=== PATIENT | female | born 1965 | race Caucasian/White ===

== ENCOUNTER 2017-02-05 04:59 | Emergency (ER) | payer OTHER ==
[~2017-02-05] VITALS: Ht 162.6 cm; Wt 104.5 kg
[~2017-02-05 04:59] MED LIST: ADVAIR 250-501 EACH IH; AMBIEN10 MG PO; ASPIR 8181 M1 PO; AZITHROMYCIN250 MG PO; BACLOFEN10 MG PO; BACTRIM,SEPT1 TABLET PO; CEFTIN500 MG PO; COLACE100 MG PO; Claritin,Alavart PO; DAILY VITE1 EAC1 PO; DESYREL100 MG PO; DILAUDID2 MG PO; DILAUDID4 MG PO; Habitrol,Nicoderm CQ TD; IMITREX25 MG PO; IMITREX6 MG/0.51 PO; IMITREX6 MG/0.51 SC; KLONOPIN1 M2 PO; LEVAQUIN750 MG PO; LEXAPRO10 MG PO; LYRICA100 MG PO; LYRICA200 MG PO; MS CONTIN,ORAMO60 MG; MS CONTIN60 MG PO; MS Contin,Oramorph S PO; NEURONTIN300 MG PO; NEURONTIN600 MG PO; NORVIR100 M1 PO; Norvir PO; OMEPRAZOLE20 M3 PO; OPANA ER15 MG PO; OPANA ER40 MG PO; OXYCODONE HCL20 M1 PO; OXYCONTIN30 MG PO; OXYMORPHONE HCL30 MG PO; OxyCODONE PO; PERCOCET 10-321 EACH PO; PERCOCET 5/31 TABLET PO; PREDNISONE20 MG PO; PREDNISONE5 MG PO; PREMARIN0.3 MG PO; PREMARIN0.625 MG PO; PROAIR HFA8.5 GM IH; PROMETHAZINE HC25 M1 PO; PULMICORT FLE180 MCG IH; Phenergan PO; RAYATAZ PO; REYATAZ150 MG PO; REYATAZ300 MG PO; ROXICODONE30 MG PO; Robitussin, Organidi PO; SPIRIVA1 INHALATI IH; SUSTIVA200 MG PO; TIZANIDINE HCL4 MG PO; TOPAMAX100 MG PO; TRUVADA1 TABLET PO; VICODIN 5-5001 EACH PO; ZANAFLEX4 M1 PO; ZITHROMAX250 MG PO; [UNRECOGNIZED DRUG - OTHER] PO; norvir PO
[2017-02-05 06:41] VITALS: BP 120/81
[2017-02-06] MEDS ORDERED: NORCO 5/3251 TABLET PO (06:20)
== END 2017-02-05 06:43 | disposition home or self-care (01) ==
LOC: EME 04:59
DX: M25.461 Effusion, right knee (principal); S80.01XA Contusion of right knee, initial encounter; Z21 Asymptomatic human immunodeficiency virus [HIV] infection status; W01.0XXA Fall on same level from slipping, tripping and stumbling without subsequent striking against object, initial encounter; Z88.6 Allergy status to analgesic agent; Z88.1 Allergy status to other antibiotic agents; Z88.2 Allergy status to sulfonamides; F17.200 Nicotine dependence, unspecified, uncomplicated; Z71.6 Tobacco abuse counseling
CPT/HCPCS: 73564; 99281; 99283; J2270

== ENCOUNTER 2017-02-06 05:43 | Emergency (ER) | payer OTHER ==
[~2017-02-06] VITALS: Ht 162.6 cm; Wt 107.7 kg
[2017-02-06] MEDS ORDERED: NORCO 5/3251 TABLET PO (06:20)
[2017-02-06 06:44] VITALS: BP 137/90
== END 2017-02-06 06:45 | disposition home or self-care (01) ==
LOC: EME 05:43
DX: M25.561 Pain in right knee (principal); M25.461 Effusion, right knee; G89.29 Other chronic pain; Z79.891 Long term (current) use of opiate analgesic; J44.9 Chronic obstructive pulmonary disease, unspecified; J45.909 Unspecified asthma, uncomplicated; Z79.82 Long term (current) use of aspirin; F17.200 Nicotine dependence, unspecified, uncomplicated
CPT/HCPCS: 99281; 99283; J3010

== ENCOUNTER → 2017-04-06 | Outpatient (CLI) | payer OTHER ==
[~2017-04-06] MED LIST changes: +NORCO 5/3251 TABLET PO; +PROVENTIL,2.5 MG/3 M IH; +ZANAFLEX4 MG PO
== END | disposition home or self-care (01) ==
LOC: CDC 14:27
DX: S83.281D Other tear of lateral meniscus, current injury, right knee, subsequent encounter (principal); J44.9 Chronic obstructive pulmonary disease, unspecified; Z79.899 Other long term (current) drug therapy; Z34.00 Encounter for supervision of normal first pregnancy, unspecified trimester
CPT/HCPCS: 93000

== ENCOUNTER 2017-04-12 05:34 | Day surgery (SDC) | payer OTHER ==
[~2017-04-12] VITALS: Ht 160 cm; Wt 107.0 kg
[2017-04-12] MEDS ORDERED: SYMBICORT60 INHALAT IH (06:05)
[2017-04-12 06:13] VITALS: BP 188/101
[2017-04-12 07:30] LABS: METH RESISTANT S AUREUS PCR NEGATIVE (NEGATIVE); PROBE CHECK PASS; SPECIMEN PROCESSING CONTROL PASS
[2017-04-12 09:37] VITALS: BP 137/82
[2017-04-12 10:53] VITALS: BP 134/82
== END 2017-04-12 10:58 | disposition home or self-care (01) ==
LOC: SDC 05:34
PROVIDERS: Orthopaedic Surgery
DX: S83.281A Other tear of lateral meniscus, current injury, right knee, initial encounter (principal); M23.41 Loose body in knee, right knee; J44.9 Chronic obstructive pulmonary disease, unspecified; F32.9 Major depressive disorder, single episode, unspecified; E11.9 Type 2 diabetes mellitus without complications; M19.90 Unspecified osteoarthritis, unspecified site; M06.9 Rheumatoid arthritis, unspecified; G89.29 Other chronic pain; M54.5 Low back pain; Z21 Asymptomatic human immunodeficiency virus [HIV] infection status; Z98.1 Arthrodesis status; Z88.8 Allergy status to other drugs, medicaments and biological substances; W18.09XA Striking against other object with subsequent fall, initial encounter
CPT/HCPCS: 87641; J0690; J1100; J1170; J2250; J2405; J2795; J3010

== ENCOUNTER 2017-04-18 20:12 | Emergency (ER) | payer OTHER ==
[~2017-04-18] VITALS: Ht 160 cm; Wt 106.8 kg
[~2017-04-18 20:12] MED LIST changes: +SYMBICORT60 INHALAT IH
[2017-04-19 00:17] VITALS: BP 138/80
== END 2017-04-19 00:18 | disposition home or self-care (01) ==
LOC: EME 20:12
DX: S39.012A Strain of muscle, fascia and tendon of lower back, initial encounter (principal); G89.29 Other chronic pain; M54.5 Low back pain; W18.30XA Fall on same level, unspecified, initial encounter; I10 Essential (primary) hypertension; F32.9 Major depressive disorder, single episode, unspecified; Z88.6 Allergy status to analgesic agent; Z88.2 Allergy status to sulfonamides; F17.200 Nicotine dependence, unspecified, uncomplicated
CPT/HCPCS: 72100; 99281; 99284; J2270; J3010

== ENCOUNTER 2017-07-21 14:51 | Inpatient (IN) | payer OTHER ==
[~2017-07-21] VITALS: Ht 160 cm; Wt 91.8 kg
[~2017-07-21 14:51] MED LIST changes: +OXYCODONE HCL15 MG PO; -OXYCODONE HCL20 M1 PO; +OXYMORPHONE HCL40 MG PO; +SYMBICORT60 INHALA1 IH; -SYMBICORT60 INHALAT IH
[2017-07-21 15:40] LABS: BASOPHIL COUNT 0.1 K/uL (0-0.1); EOSINOPHIL (%) 0.4 % (0-5); EOSINOPHIL COUNT 0.1 K/uL (0-0.3); HEMATOCRIT 40.5 % (36.0-46.0); IMMATURE GRANULOCYTE (%) 0.4 % (0.0-0.7); IMMATURE GRANULOCYTE COUNT 0.1 K/uL; INSTRUMENT ABS NEUTROPHIL CT 10.9 K/uL; LYMPHOCYTE COUNT 2.6 K/uL (1.0-2.8); MCH 26.4 PG (29.0-34.0); MCHC 31.1 G/DL (30.0-36.0); MCV 84.9 FL (83-99); MEAN PLAT.VOLUME 11.5 uM^3 (9.5-12.4); MONOCYTE (%) 4.7 % (3-12); MONOCYTE COUNT 0.7 K/uL (0-0.8); NEUTROPHIL (%) 76.3 % (45-76); NEUTROPHIL COUNT 10.9 K/uL (1.8-6.4); PLATELET COUNT 211 K/uL (156-360); RBC DIS.WIDTH-CV 14.6 % (11.8-14.6); RBC DIS.WIDTH-SD 44.9 % (39-53); RED BLOOD COUNT 4.77 M/uL (3.80-5.20); WHITE BLOOD COUNT 14.4 K/uL (4.1-10.2)
[2017-07-21 15:55] LABS: CHLORIDE 102 mEq/L (99-109); POTASSIUM 3.8 mEq/L (3.7-5.4); SODIUM 136 mEq/L (136-147)
[2017-07-21 15:57] LABS: GLUCOSE 127 mg/dL (70-99)
[2017-07-21 15:59] LABS: ANION GAP 10 MEQ/L (2-14); TOTAL BILIRUBIN 0.9 mg/dL (0.0-1.0)
[2017-07-21 16:01] LABS: ALKALINE PHOSPHATASE 98 IU/L (3-129); GFR ESTIMATE (CALCULATED) > 59 mL/min/
[2017-07-21 16:02] LABS: UREA NITROGEN (BUN) 15 mg/dL (9-23)
[2017-07-21 16:42] LABS: TROP-I INTERPRETATION NEGATIVE; TROPONIN-I 0.04 ng/mL (0.0-0.30)
[2017-07-21] MEDS ORDERED: FUROSEMIDE20 MG PO (16:45)
[2017-07-21] MEDS ORDERED: LISINOPRIL10 MG PO (16:45)
[2017-07-21] MEDS ORDERED: KLOR-CON M2020 MEQ PO (16:45)
[2017-07-21] MEDS ORDERED: IMITREX6 MG/0.52 SC (16:45)
[2017-07-21] MEDS ORDERED: HYDROCHLOROTH12.5 M3 PO (16:45)
[2017-07-21 17:11] LABS: ADD MIUA? YES; BILIRUBIN NEGATIVE; BLOOD NEGATIVE; COLOR AMBER ((YELLOW)); GLUCOSE (STRIP) NEGATIVE; KETONES 5; LEUKOCYTES NEGATIVE; NITRITE NEGATIVE; PROTEIN (STRIP) 30; SPECIFIC GRAVITY 1.031 (1.000-1.030)
[2017-07-21 17:21] LABS: BACTERIA RARE /HPF; EPITHELIAL CELLS 1+ /HPF; MUCUS 3+ /LPF; RED BLOOD CELLS 0-5 /HPF (0-5); UCUL ADDED? NO; WHITE BLOOD CELLS NONE SEEN /HPF (0-5)
[2017-07-21 17:55] LABS: INFLUENZA A VIRAL ANTIGEN NEGATIVE; INFLUENZA B VIRAL ANTIGEN NEGATIVE
[2017-07-21 20:54] VITALS: BP 172/61
[2017-07-21 23:26] VITALS: BP 159/72
[2017-07-22 06:39] LABS: EOSINOPHIL (%) 0 % (0-5); HEMATOCRIT 41.7 % (36.0-46.0); IMMATURE GRANULOCYTE (%) 0.5 % (0.0-0.7); IMMATURE GRANULOCYTE COUNT 0.1 K/uL; INSTRUMENT ABS NEUTROPHIL CT 13.6 K/uL; LYMPHOCYTE COUNT 1.5 K/uL (1.0-2.8); MCV 86.7 FL (83-99); MONOCYTE (%) 0.9 % (3-12); MONOCYTE COUNT 0.1 K/uL (0-0.8); NEUTROPHIL (%) 88.7 % (45-76); NEUTROPHIL COUNT 13.6 K/uL (1.8-6.4); PLATELET COUNT 216 K/uL (156-360); RBC DIS.WIDTH-CV 14.5 % (11.8-14.6); RBC DIS.WIDTH-SD 46.2 % (39-53); RED BLOOD COUNT 4.81 M/uL (3.80-5.20); WHITE BLOOD COUNT 15.4 K/uL (4.1-10.2)
[2017-07-22 07:05] LABS: ANION GAP 10 MEQ/L (2-14); CHLORIDE 101 MEQ/L (99-109); GFR ESTIMATE (CALCULATED) > 59 mL/min/; GLUCOSE 229 mg/dL (70-99); POTASSIUM 4.7 MEQ/L (3.7-5.4); SAMPLE HEMOLYSIS CHECK 0; SAMPLE ICTERIC CHECK 0; SAMPLE LIPEMIA CHECK 0; SODIUM 138 MEQ/L (136-147); UREA NITROGEN (BUN) 13 mg/dL (9-23)
[2017-07-22 07:14] VITALS: BP 184/83
[2017-07-22 08:37] LABS: INTERNAL CONTROL VALID? YES
[2017-07-22 11:33] VITALS: BP 144/64
[2017-07-22 15:30] VITALS: BP 160/88
[2017-07-22 23:55] VITALS: BP 130/72
[2017-07-23 06:54] LABS: EOSINOPHIL (%) 0 % (0-5); HEMATOCRIT 38.7 % (36.0-46.0); IMMATURE GRANULOCYTE (%) 0.6 % (0.0-0.7); IMMATURE GRANULOCYTE COUNT 0.1 K/uL; INSTRUMENT ABS NEUTROPHIL CT 18.3 K/uL; LYMPHOCYTE COUNT 1.6 K/uL (1.0-2.8); MCH 26.1 PG (29.0-34.0); MCHC 30.2 G/DL (30.0-36.0); MCV 86.2 FL (83-99); MEAN PLAT.VOLUME 12.1 uM^3 (9.5-12.4); MONOCYTE (%) 2.1 % (3-12); MONOCYTE COUNT 0.4 K/uL (0-0.8); NEUTROPHIL (%) 89.2 % (45-76); NEUTROPHIL COUNT 18.3 K/uL (1.8-6.4); PLATELET COUNT 224 K/uL (156-360); RBC DIS.WIDTH-CV 14.7 % (11.8-14.6); RBC DIS.WIDTH-SD 46.5 % (39-53); RED BLOOD COUNT 4.49 M/uL (3.80-5.20); WHITE BLOOD COUNT 20.5 K/uL (4.1-10.2)
[2017-07-23 07:22] LABS: ALKALINE PHOSPHATASE 123 IU/L (3-129); ANION GAP 7 MEQ/L (2-14); CHLORIDE 104 MEQ/L (99-109); GFR ESTIMATE (CALCULATED) > 59 mL/min/; GLUCOSE 131 mg/dL (70-99); POTASSIUM 5.2 MEQ/L (3.7-5.4); SAMPLE HEMOLYSIS CHECK 0; SAMPLE ICTERIC CHECK 0; SAMPLE LIPEMIA CHECK 0; SODIUM 140 MEQ/L (136-147); TOTAL BILIRUBIN 0.8 MG/DL (0.0-1.0); UREA NITROGEN (BUN) 20 mg/dL (9-23)
[2017-07-23 07:42] VITALS: BP 187/110
[2017-07-23 08:46] LABS: AMPHETAMINES QUANT VALUE 0 NG/ML; BARBITUATES QUANT VALUE 0 NG/ML; BENZODIAZEPINES QUANT VALUE 0 NG/ML; BENZODIAZEPINES, URINE SCREEN Negative (200 ng/mL); MARIJUANA QUANT VALUE 0 NG/ML; PHENCYCLIDINE QUANT VALUE 0 NG/ML
[2017-07-23 16:28] VITALS: BP 186/110
[2017-07-23 23:23] VITALS: BP 150/84
[2017-07-24 06:56] LABS: EOSINOPHIL (%) 0 % (0-5); HEMATOCRIT 41.3 % (36.0-46.0); IMMATURE GRANULOCYTE (%) 1.6 % (0.0-0.7); IMMATURE GRANULOCYTE COUNT 0.3 K/uL; INSTRUMENT ABS NEUTROPHIL CT 14.7 K/uL; LYMPHOCYTE COUNT 2.1 K/uL (1.0-2.8); MCH 26.9 PG (29.0-34.0); MCV 86.8 FL (83-99); MONOCYTE (%) 2.3 % (3-12); MONOCYTE COUNT 0.4 K/uL (0-0.8); NEUTROPHIL (%) 83.8 % (45-76); NEUTROPHIL COUNT 14.7 K/uL (1.8-6.4); PLATELET COUNT 275 K/uL (156-360); RBC DIS.WIDTH-CV 14.9 % (11.8-14.6); RBC DIS.WIDTH-SD 47.6 % (39-53); RED BLOOD COUNT 4.76 M/uL (3.80-5.20); WHITE BLOOD COUNT 17.5 K/uL (4.1-10.2)
[2017-07-24 07:21] LABS: ALKALINE PHOSPHATASE 139 IU/L (3-129); ANION GAP 10 MEQ/L (2-14); CHLORIDE 100 MEQ/L (99-109); DIRECT BILIRUBIN 0.3 mg/dL (0.0-0.3); GFR ESTIMATE (CALCULATED) > 59 mL/min/; GLUCOSE 203 mg/dL (70-99); POTASSIUM 4.9 MEQ/L (3.7-5.4); SAMPLE HEMOLYSIS CHECK 0; SAMPLE ICTERIC CHECK 0; SAMPLE LIPEMIA CHECK 0; SODIUM 141 MEQ/L (136-147); UREA NITROGEN (BUN) 21 mg/dL (9-23)
[2017-07-24 07:22] LABS: TOTAL BILIRUBIN 1.1 MG/DL (0.0-1.0)
[2017-07-24 07:50] VITALS: BP 181/95
[2017-07-24 14:21] LABS: HBSG INDEX 0.19
[2017-07-24 14:22] LABS: ANTI-HEPATITIS A VIRUS (IGM) Nonreactive; HAV INDEX 0.23
[2017-07-24 14:24] LABS: ANTI-HEPATITIS B CORE (IGM) Nonreactive; HBC IgM INDEX 0.08
[2017-07-24 15:45] VITALS: BP 160/90
[2017-07-28 13:44] LABS: HIV RNA QUANT LOG10 RESULT < 1.30 Log(10) (<1.30); HIV RNA QUANT VIRAL LOAD < 20 copy/mL (<20)
== END 2017-07-24 21:49 | disposition left against medical advice (07) | DRG 189 ==
LOC: EME 14:51 → EDOF 17:25 → 5EAST 17:25 → CANRESERV 17:26 → ENRESERV 17:26 → 5EAST 20:33
PROVIDERS: Emergency Medicine; Internal Medicine Infectious Disease; Nurse Practitioner Adult Health; Physician Assistant
DX: J96.21 Acute and chronic respiratory failure with hypoxia (principal); J44.0 Chronic obstructive pulmonary disease with (acute) lower respiratory infection; J15.9 Unspecified bacterial pneumonia; J44.1 Chronic obstructive pulmonary disease with (acute) exacerbation; B20 Human immunodeficiency virus [HIV] disease; I11.9 Hypertensive heart disease without heart failure; F43.25 Adjustment disorder with mixed disturbance of emotions and conduct; F41.9 Anxiety disorder, unspecified; G47.33 Obstructive sleep apnea (adult) (pediatric); M79.7 Fibromyalgia; G89.4 Chronic pain syndrome; G43.909 Migraine, unspecified, not intractable, without status migrainosus; F17.210 Nicotine dependence, cigarettes, uncomplicated; Z99.81 Dependence on supplemental oxygen; E66.01 Morbid (severe) obesity due to excess calories; Z68.35 Body mass index [BMI] 35.0-35.9, adult; Z79.891 Long term (current) use of opiate analgesic
CPT/HCPCS: 70450; 71020; 72125; 76705; 80053; 80069; 80074; 80076; 80306 90; 81003; 83605; 83880; 84484; 85025; 86355 90; 86359 90; 86360 90; 87040; 87070; 87106; 87205; 87449; 87502; 87536; 93005; 93306; 94640; 94640 76; 94799; 99202; 99281; 99285; J0456; J0692; J0696; J1644; J1956; J2930; J7030; J7050; J7644

== ENCOUNTER 2017-10-07 12:17 | Inpatient (IN) | payer OTHER ==
[~2017-10-07] VITALS: Ht 161.3 cm; Wt 101.9 kg
[~2017-10-07 12:17] MED LIST changes: +FUROSEMIDE20 MG PO; +GABAPENTIN600 MG PO; +HYDROCHLOROTH12.5 M3 PO; +IMITREX6 MG/0.52 SC; +KLOR-CON M2020 MEQ PO; +LISINOPRIL10 MG PO
[2017-10-07 13:00] LABS: BASOPHIL COUNT 0.1 K/uL (0-0.1); EOSINOPHIL (%) 0.4 % (0-5); EOSINOPHIL COUNT 0.1 K/uL (0-0.3); HEMATOCRIT 41.7 % (36.0-46.0); IMMATURE GRANULOCYTE (%) 0.3 % (0.0-0.7); INSTRUMENT ABS NEUTROPHIL CT 8.8 K/uL; LYMPHOCYTE COUNT 1.8 K/uL (1.0-2.8); MCH 27.1 PG (29.0-34.0); MCHC 30.9 G/DL (30.0-36.0); MCV 87.6 FL (83-99); MEAN PLAT.VOLUME 11.2 uM^3 (9.5-12.4); MONOCYTE (%) 4.4 % (3-12); MONOCYTE COUNT 0.5 K/uL (0-0.8); NEUTROPHIL COUNT 8.8 K/uL (1.8-6.4); PLATELET COUNT 182 K/uL (156-360); RBC DIS.WIDTH-CV 16.3 % (11.8-14.6); RBC DIS.WIDTH-SD 52.3 % (39-53); RED BLOOD COUNT 4.76 M/uL (3.80-5.20); WHITE BLOOD COUNT 11.3 K/uL (4.1-10.2)
[2017-10-07 13:13] LABS: CHLORIDE 106 mEq/L (99-109); POTASSIUM 4.3 mEq/L (3.7-5.4); SODIUM 142 mEq/L (136-147)
[2017-10-07 13:14] LABS: GLUCOSE 178 mg/dL (70-99)
[2017-10-07 13:16] LABS: ANION GAP 6 MEQ/L (2-14)
[2017-10-07 13:18] LABS: GFR ESTIMATE (CALCULATED) > 59 mL/min/
[2017-10-07 13:19] LABS: UREA NITROGEN (BUN) 7 mg/dL (9-23)
[2017-10-07 20:27] VITALS: BP 154/81; BP 221/103
[2017-10-08] VITALS: BP 184/90
[2017-10-08 01:21] LABS: METH RESISTANT S AUREUS PCR NEGATIVE (NEGATIVE)
[2017-10-08 01:25] LABS: PROBE CHECK PASS; SPECIMEN PROCESSING CONTROL PASS
[2017-10-08 04:07] VITALS: BP 133/63
[2017-10-08 07:30] LABS: EOSINOPHIL (%) 0 % (0-5); HEMATOCRIT 39.2 % (36.0-46.0); IMMATURE GRANULOCYTE (%) 0.4 % (0.0-0.7); INSTRUMENT ABS NEUTROPHIL CT 6.2 K/uL; LYMPHOCYTE COUNT 1.2 K/uL (1.0-2.8); MCH 27.1 PG (29.0-34.0); MCHC 31.1 G/DL (30.0-36.0); MCV 86.9 FL (83-99); MEAN PLAT.VOLUME 12.3 uM^3 (9.5-12.4); MONOCYTE (%) 1.2 % (3-12); MONOCYTE COUNT 0.1 K/uL (0-0.8); NEUTROPHIL (%) 82.9 % (45-76); NEUTROPHIL COUNT 6.2 K/uL (1.8-6.4); PLATELET COUNT 181 K/uL (156-360); RBC DIS.WIDTH-CV 16.3 % (11.8-14.6); RBC DIS.WIDTH-SD 52.2 % (39-53); RED BLOOD COUNT 4.51 M/uL (3.80-5.20); WHITE BLOOD COUNT 7.5 K/uL (4.1-10.2)
[2017-10-08 07:37] VITALS: BP 175/109
[2017-10-08 08:09] LABS: ALKALINE PHOSPHATASE 87 IU/L (3-129); ANION GAP 7 MEQ/L (2-14); CHLORIDE 106 MEQ/L (99-109); GFR ESTIMATE (CALCULATED) > 59 mL/min/; GLUCOSE 218 mg/dL (70-99); POTASSIUM 4.1 MEQ/L (3.7-5.4); SAMPLE HEMOLYSIS CHECK 0; SAMPLE ICTERIC CHECK 0; SAMPLE LIPEMIA CHECK 0; SODIUM 143 MEQ/L (136-147); TOTAL BILIRUBIN 1.5 MG/DL (0.0-1.0); UREA NITROGEN (BUN) 12 mg/dL (9-23)
[2017-10-08 08:24] LABS: INTERNAL CONTROL VALID? YES
== END 2017-10-08 11:40 | disposition left against medical advice (07) | DRG 193 ==
LOC: EME 12:17 → 2EAST 14:30 → EDOF 14:30 → ENRESERV 14:31 → 2EAST 19:12
PROVIDERS: Emergency Medicine; Hospitalist
DX: J18.9 Pneumonia, unspecified organism (principal); J96.21 Acute and chronic respiratory failure with hypoxia; J44.1 Chronic obstructive pulmonary disease with (acute) exacerbation; F41.9 Anxiety disorder, unspecified; F11.20 Opioid dependence, uncomplicated; G89.4 Chronic pain syndrome; F17.210 Nicotine dependence, cigarettes, uncomplicated; I10 Essential (primary) hypertension; M54.5 Low back pain; Y95 Nosocomial condition; Z21 Asymptomatic human immunodeficiency virus [HIV] infection status; Z82.3 Family history of stroke; Z91.19 Patient's noncompliance with other medical treatment and regimen; Z87.01 Personal history of pneumonia (recurrent); Z79.891 Long term (current) use of opiate analgesic; Z99.81 Dependence on supplemental oxygen; Z90.710 Acquired absence of both cervix and uterus
CPT/HCPCS: 71010; 80048; 80053; 85025; 87040; 87070; 87205; 87449; 87502; 87641; 93005; 94640; 94640 76; 94799; 99202; 99281; 99285; J0456; J0696; J1650; J2543; J2930; J3370; J7050

== ENCOUNTER 2018-01-19 13:42 | Emergency (ER) | payer OTHER ==
[~2018-01-19] VITALS: Ht 160 cm; Wt 89.3 kg
[2018-01-19] MEDS ORDERED: ZOFRAN ODT4 MG PO (14:52)
[2018-01-19 16:25] VITALS: BP 105/82
== END 2018-01-19 16:29 | disposition home or self-care (01) ==
LOC: EME 13:42
DX: M54.5 Low back pain (principal); G89.29 Other chronic pain; R11.2 Nausea with vomiting, unspecified; F11.23 Opioid dependence with withdrawal; I10 Essential (primary) hypertension; J44.9 Chronic obstructive pulmonary disease, unspecified; B20 Human immunodeficiency virus [HIV] disease; Z98.1 Arthrodesis status; Z90.711 Acquired absence of uterus with remaining cervical stump; Z79.82 Long term (current) use of aspirin; F17.200 Nicotine dependence, unspecified, uncomplicated
CPT/HCPCS: 99281; 99284; J0780; J3010

== ENCOUNTER 2018-02-21 15:08 | Emergency (ER) | payer OTHER ==
[~2018-02-21] VITALS: Ht 161.3 cm; Wt 86.3 kg
[~2018-02-21 15:08] MED LIST changes: +ZOFRAN ODT4 MG PO
[2018-02-21 18:32] VITALS: BP 169/104
== END 2018-02-21 18:35 | disposition home or self-care (01) ==
LOC: EME 15:08
DX: S39.92XA Unspecified injury of lower back, initial encounter (principal); M54.2 Cervicalgia; W01.0XXA Fall on same level from slipping, tripping and stumbling without subsequent striking against object, initial encounter; Y92.002 Bathroom of unspecified non-institutional (private) residence as the place of occurrence of the external cause; K21.9 Gastro-esophageal reflux disease without esophagitis; J45.909 Unspecified asthma, uncomplicated; I10 Essential (primary) hypertension; G89.29 Other chronic pain; B20 Human immunodeficiency virus [HIV] disease; F41.9 Anxiety disorder, unspecified; F32.9 Major depressive disorder, single episode, unspecified; Z98.1 Arthrodesis status; Z90.711 Acquired absence of uterus with remaining cervical stump; F17.200 Nicotine dependence, unspecified, uncomplicated; Z79.82 Long term (current) use of aspirin; Z88.6 Allergy status to analgesic agent; Z88.2 Allergy status to sulfonamides; Z88.5 Allergy status to narcotic agent; Z88.1 Allergy status to other antibiotic agents; Z88.8 Allergy status to other drugs, medicaments and biological substances
CPT/HCPCS: 72125; 72128; 72131; 99281; 99284; J3010; Q0169

== ENCOUNTER 2018-03-16 21:08 | Emergency (ER) | payer OTHER ==
[~2018-03-16] VITALS: Ht 160 cm; Wt 89.8 kg
[2018-03-16] MEDS ORDERED: VALIUM2 MG PO (22:34)
[2018-03-16 23:07] VITALS: BP 182/100
== END 2018-03-16 23:08 | disposition home or self-care (01) ==
LOC: EME 21:08
DX: M54.5 Low back pain (principal); G89.29 Other chronic pain; I10 Essential (primary) hypertension; K21.9 Gastro-esophageal reflux disease without esophagitis; J45.909 Unspecified asthma, uncomplicated; B20 Human immunodeficiency virus [HIV] disease; F41.9 Anxiety disorder, unspecified; F32.9 Major depressive disorder, single episode, unspecified; F17.200 Nicotine dependence, unspecified, uncomplicated; Z79.82 Long term (current) use of aspirin; Z79.891 Long term (current) use of opiate analgesic; Z79.51 Long term (current) use of inhaled steroids; Z97.8 Presence of other specified devices; Z98.890 Other specified postprocedural states; Z90.710 Acquired absence of both cervix and uterus; Z86.018 Personal history of other benign neoplasm; Z88.5 Allergy status to narcotic agent; Z88.1 Allergy status to other antibiotic agents; Z88.2 Allergy status to sulfonamides; Z88.6 Allergy status to analgesic agent; Z88.8 Allergy status to other drugs, medicaments and biological substances
CPT/HCPCS: 99281; 99284; J3010

== ENCOUNTER 2018-06-10 16:13 | Inpatient (IN) | payer OTHER ==
[~2018-06-10] VITALS: Ht 160 cm; Wt 88.0 kg
[~2018-06-10 16:13] MED LIST changes: -GABAPENTIN600 MG PO; +NEURONTIN800 MG PO; -OXYCODONE HCL15 MG PO; +OXYMORPHONE HCL20 MG PO; -OXYMORPHONE HCL40 MG PO; -PROAIR HFA8.5 GM IH; +VALIUM2 MG PO; +VENTOLIN HFA18 GM IH
[2018-06-10 18:30] LABS: BASOPHIL (%) 0.7 % (0-1); BASOPHIL COUNT 0.1 K/uL (0-0.1); EOSINOPHIL (%) 1.8 % (0-5); EOSINOPHIL COUNT 0.2 K/uL (0-0.3); HEMATOCRIT 45.4 % (36.0-46.0); HEMOGLOBIN 14.7 G/DL (11.9-15.5); IMMATURE GRANULOCYTE (%) 0.3 % (0.0-0.7); LYMPHOCYTE (%) 40.5 % (15-42); LYMPHOCYTE COUNT 3.8 K/uL (1.0-2.8); MCH 28.1 PG (29.0-34.0); MCHC 32.4 G/DL (30.0-36.0); MCV 86.8 FL (83-99); MONOCYTE (%) 4.1 % (3-12); MONOCYTE COUNT 0.4 K/uL (0-0.8); NEUTROPHIL (%) 52.6 % (45-76); NEUTROPHIL COUNT 4.9 K/uL (1.8-6.4); PLATELET COUNT 186 K/uL (156-360); RBC DIS.WIDTH-CV 14.7 % (11.8-14.6); RBC DIS.WIDTH-SD 47.1 % (39-53); RED BLOOD COUNT 5.23 M/uL (3.80-5.20); WHITE BLOOD COUNT 9.3 K/uL (4.1-10.2)
[2018-06-10 18:40] LABS: CHLORIDE 104 mEq/L (99-109); POTASSIUM 4.5 mEq/L (3.7-5.4); SODIUM 138 mEq/L (136-147)
[2018-06-10 18:42] LABS: GLUCOSE 94 mg/dL (70-99)
[2018-06-10 18:46] LABS: CREATININE 0.7 mg/dL (0.6-1.3); GFR ESTIMATE (CALCULATED) > 59 mL/min/; UREA NITROGEN (BUN) 11 mg/dL (9-23)
[2018-06-10] MEDS ORDERED: BACLOFEN10 MG PO (18:54)
[2018-06-10] MEDS ORDERED: HEADACHE RELIE1 EAC3 PO (18:57)
[2018-06-10 23:00] VITALS: BP 185/82
[2018-06-11] VITALS (8 sets, daily range): BP systolic 145–200; BP diastolic 76–106
[2018-06-12 00:26] VITALS: BP 122/58
[2018-06-12 04:53] VITALS: BP 108/59
[2018-06-12 05:45] VITALS: BP 171/83
[2018-06-12 07:30] VITALS: BP 122/70
[2018-06-12 15:58] VITALS: BP 126/69
[2018-06-13 00:05] VITALS: BP 165/80
[2018-06-13 07:34] VITALS: BP 195/81
[2018-06-13 11:05] VITALS: BP 168/82
[2018-06-13] MEDS ORDERED: LISINOPRIL40 MG PO (15:25)
[2018-06-13] MEDS ORDERED: LEVAQUIN750 MG PO (15:25)
[2018-06-13] MEDS ORDERED: DECADRON1 MG PO (15:25)
== END 2018-06-13 16:10 | disposition home or self-care (01) | DRG 975 ==
LOC: EME 16:13 → EDOF 19:55 → 2EAST 19:55 → ENPENDDIS 06-13 16:09 → 2EAST 06-13 16:10
PROVIDERS: Emergency Medicine; Internal Medicine Infectious Disease
DX: J18.9 Pneumonia, unspecified organism (principal); B20 Human immunodeficiency virus [HIV] disease; F11.20 Opioid dependence, uncomplicated; J44.0 Chronic obstructive pulmonary disease with (acute) lower respiratory infection; R09.1 Pleurisy; F17.210 Nicotine dependence, cigarettes, uncomplicated; F41.9 Anxiety disorder, unspecified; G89.29 Other chronic pain; I10 Essential (primary) hypertension; M19.90 Unspecified osteoarthritis, unspecified site; M47.816 Spondylosis without myelopathy or radiculopathy, lumbar region; G62.9 Polyneuropathy, unspecified; Z90.710 Acquired absence of both cervix and uterus; Z88.5 Allergy status to narcotic agent; Z79.51 Long term (current) use of inhaled steroids; Z79.82 Long term (current) use of aspirin; Z82.3 Family history of stroke
CPT/HCPCS: 71046; 80048; 83605; 85025; 86355 90; 86359 90; 86360 90; 87040; 87449; 87536; 87641; 93005; 94640; 94799; 99281; 99284; J0456; J0696; J1956; J3010; J8540; Q0169

== ENCOUNTER 2018-06-26 13:42 | Emergency (ER) | payer OTHER ==
[~2018-06-26] VITALS: Ht 160 cm; Wt 84.5 kg
[~2018-06-26 13:42] MED LIST changes: +DECADRON1 MG PO; +HEADACHE RELIE1 EAC3 PO; +LISINOPRIL40 MG PO
[2018-06-26 13:48] VITALS: BP 158/101
== END 2018-06-26 14:48 | disposition left against medical advice (07) ==
LOC: EME 13:42
DX: L98.9 Disorder of the skin and subcutaneous tissue, unspecified (principal); R06.00 Dyspnea, unspecified; Z53.21 Procedure and treatment not carried out due to patient leaving prior to being seen by health care provider